=== PATIENT | female | born 1970 | race Caucasian/White ===

== ENCOUNTER 2024-06-29 06:14 | Day surgery (SDC) | payer OTHER, SELFPAY ==
[2024-06-29] VITALS (7 sets, daily range): BP systolic 87–111; BP diastolic 45–69; BMI 23.0
[2024-06-29] MEDS: TYLENOL 1000 MG PO (08:54)
[2024-06-29] MEDS: NORMOSOL-R 1000 IV (08:54)
== END 2024-06-29 12:22 | disposition home or self-care (01) ==
LOC: SDS 06:14
PROVIDERS: ATTENDING PHYSICIAN Surgery; FAMILY PHYSICIAN Internal Medicine
DX: K60.5 Anorectal fistula (principal); K62.89 Other specified diseases of anus and rectum; K64.8 Other hemorrhoids
CPT/HCPCS: 46275; 36415; 93005